=== PATIENT | female | born 1955 | race Caucasian/White ===

== ENCOUNTER → 2020-05-30 | Day surgery (SDC) | payer OTHER ==
--- NOTE | 2020-05-30 13:55 | MMO ---
FILMS COMPARED: The present examination has been compared to prior imaging studies performed at [facility] on 05/18/2020 and 05/22/2020. MAMMOGRAM FINDINGS: There are scattered fibroglandular densities. There is a biopsy clip seen in the left breast at 2 o'clock. Biopsy clip is slightly anterior to the mass. IMPRESSION: BIOPSY CLIP IN THE LEFT BREAST IS CONFIRMED UTILIZING POST PROCEDURE MAMMOGRAM. Reported by: VAIBHAV NELSON MD Electonically Signed: [id number]
--- NOTE | 2020-05-30 14:53 | ULT ---
Exam: Left breast biopsy with ultrasound guidance HISTORY: Left breast mass COMPARISON: 05/22/2020 FINDINGS: Successful left breast biopsy with ultrasound guidance. A total of four 14-gauge core biops y samples were obtained. Lesional tissue was placed directly in formalin. Postbiopsy clip was placed. Post biopsy mammograms performed. Clip is appropriately positioned TECHNIQUE: Consent obtained to perform an ultrasound guided biopsy of the left breast. Left breast wa s prepped and draped in a sterile fashion. 1% lidocaine, buffered with sodium bicarbonate was used for local anesthesia. Under ultrasound guidance, a 14-gauge core biopsy needle was used obtain four s eparate samples. Samples were placed directly in formalin. Postbiopsy clip was placed. Postprocedure mammogram was performed. There are no immediate or postprocedure complications IMPRESSION: Successful left breast biopsy with ultrasound guidance. Final pathologic diagnosis is pen ding. Transcribed Date/Time: 05/30/2020 3:16 PM
== END ==
LOC: BICULT 12:48
PROVIDERS: ATTEND Family Medicine
PROC: 0H9U3ZX Drainage of Left Breast, Percutaneous Approach, Diagnostic (ICD-10-PCS; principal; 2020-05-30)
DX: D24.2 Benign neoplasm of left breast (principal)
CPT/HCPCS: 19083; 88305

== ENCOUNTER 2023-05-02 09:23 | Outpatient (CLI) | payer OTHER | END 2023-05-02 09:24 | disposition home or self-care (01) | LOC: BICMAMMO 09:23 | PROVIDERS: ATTEND Nurse Practitioner Family | DX: N63.11 Unspecified lump in the right breast, upper outer quadrant (principal) | CPT/HCPCS: 77066; G0279 ==